=== PATIENT | female | born 1955 | race Caucasian/White ===

== ENCOUNTER → 2018-05-20 | Outpatient (CLI) | payer BC ==
--- NOTE | 2018-05-20 11:10 | RAD ---
PQRS Compliance statement: One or more of the following individualized dose reduction techniques were utilized for this examination: 1. Automated exposure control. 2. Adjustment of the mA and/or kV according to patient size. 3. Use of iterative reconstruction technique. Indication:Left flank pain x 5 days TECHNIQUE: CT abdomen and pelvis without IV contrast with multiplanar reformats. COMPARISON: None FINDINGS: Limited evaluation of solid abdominal and pelvic organs due to lack of IV contrast. Heart is normal in size. No pericardial or pleural effusion. Clear lung bases. Noncontrast appearance of the liver, spleen, pancreas, left adrenal within normal limits. 1.4 cm low attenuating lesion in the right adrenal gland demonstrating attenuation compatible with adrenal adenoma. No nephrolithiasis or hydronephrosis. No enlarged retroperitoneal or pelvic adenopathy. No free pelvic fluid or ascites. No bowel obstruction. Urinary bladder demonstrates no radiopaque stones. Status post hysterectomy. No pneumoperitoneum. No suspicious bony lesion. IMPRESSION: Limited evaluation of solid abdominal and pelvic organs due to lack of IV contrast. 1. No nephrolithiasis or hydronephrosis. 2. No bowel obstruction. 3. Incidental note made of right adrenal adenoma. Electronically signed by: Jorge Luis Bliss DO (05/20/2018 11:06 AM) [facility]
== END | disposition home or self-care (01) ==
LOC: CT 10:34
PROVIDERS: ATTEND Nurse Practitioner Adult Health
DX: D35.01 Benign neoplasm of right adrenal gland (principal)
CPT/HCPCS: 74176